=== PATIENT | male | born 1965 | race Caucasian/White ===

== ENCOUNTER 2020-04-24 09:57 | Emergency (ER) | payer BC ==
[2020-04-24] MEDS ORDERED: fentaNYL 100 MCG/2 ML SDV IVPUSH ONE ×2 (10:09→10:10)
[2020-04-24] MEDS ORDERED: Ondansetron 4 MG/2 ML SDV IVPUSH ONE (10:09)
--- NOTE | 2020-04-24 10:17 | EDM.PDOC ---
ED HPI GENERAL MEDICAL PROBLEM - General Chief Complaint: Laceration Stated Complaint: RIGHT FINGER LAC Time Seen by Provider: 04/24/20 10:10 - History of Present Illness INITIAL COMMENTS - FREE TEXT/NARRATIVE: 54-year-old male presents the emergency room after injuring his right hand. 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 He inadvertently got his right pinky finger caught in a V belt. He has done significant damage to this finger. His last tetanus is unknown. His last meal was approximately 8:00 Mountain time this morning. Right Finger-Little Pain Score (Numeric/FACES): 8 - Related Data Allergies Allergy/AdvReac Type Severity Reaction Status Date / Time No Known Allergies Allergy Verified 04/24/20 10:11 ED ROS GENERAL - Review of Systems Review Of Systems: See Below Constitutional: Reports: No Symptoms HEENT: Reports: No Symptoms Respiratory: Reports: No Symptoms Cardiovascular: Reports: No Symptoms GI/Abdominal: Reports: No Symptoms Neurological: Reports: No Symptoms ED EXAM, SKIN/RASH Exam: See Below Exam Limited By: No Limitations General Appearance: Alert, No Apparent Distress Head: Atraumatic Neck: Normal Inspection, Supple, Non-Tender, Full Range of Motion Respiratory/Chest: No Respiratory Distress, Lungs Clear, Normal Breath Sounds Cardiovascular: Regular Rate, Rhythm, No Edema, No Murmur Extremities: Other (Patient was right hand shows normal hand except for the fifth digit he has a 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 The patient can do nothing with this finger and the finger is pretty numb. The remaining distal finger is melendrez and dusky) Course - Vital Signs Last Recorded V/S: Last Vital Signs Temp 36.8 C 04/24/20 10:06 Pulse 53 L 04/24/20 10:06 Resp 20 04/24/20 10:06 BP 139/96 H 04/24/20 10:06 Pulse Ox 99 04/24/20 10:06 - Orders/Labs/Meds Orders: Active Orders 24 hr Category Date Time Status Vaccines to be Administered [RC] PER UNIT ROUTINE Care 04/24/20 10:20 Active Meds: Medications Discontinued Medications Generic Name Dose Route Start Last Admin Trade Name Freq PRN Reason Stop Dose Admin Diphtheria/Tetanus/Acell Pertussis 0.5 ml 04/24/20 10:20 Adacel IM 04/24/20 10:21 .ONCE ONE Fentanyl 50 mcg 04/24/20 10:09 04/24/20 10:17 Sublimaze IVPUSH 04/24/20 10:10 50 mcg ONETIME ONE Administration Fentanyl 50 mcg 04/24/20 10:10 Sublimaze IVPUSH 04/24/20 10:11 ONETIME ONE Cefazolin Sodium/Dextrose 2 gm 50 mls @ 100 mls/hr 04/24/20 10:18 04/24/20 10:45 / Premix IV 04/24/20 10:47 100 mls/hr ONETIME ONE Administration Ondansetron HCl 4 mg 04/24/20 10:09 04/24/20 10:15 Zofran IVPUSH 04/24/20 10:10 4 mg ONETIME ONE Administration - Re-Assessments/Exams Free Text/Narrative Re-Assessment/Exam: 04/24/20 11:38 X-ray reveals a disarticulation as was suspected on physical exam at the proximal interphalangeal joint of the fifth finger of the right hand. No obvious tuft fracture at the distal fourth finger as this was also injured. Case discussed with Dr. Ramirez, hand surgeon at [facility] in [place] who will see the patient today in the clinic and will determine the best disposition at that point. The patient is received 2 g of IV Ancef here and had his tetanus brought up-to-date. Departure - Departure Time of Disposition: 11:40 Disposition: DC/Tfer to Acute Hospital 02 Clinical Impression: Injury of right hand, Crushing injury of finger of right hand, Amputation of right little finger - Discharge Information Referrals: PCP,None [Primary Care Provider] - Forms: ED Department Discharge Additional Instructions: Have your ride take you directly to [facility] in [place]. You will see Dr. Ramirez. Do not have anything to eat or drink in route. Have your local tanker truck driver drive safely to [place]. Sepsis Event Note (ED) - Focused Exam Vital Signs: Vital Signs Temp Pulse Resp BP Pulse Ox 04/24/20 10:06 36.8 C 53 L 20 139/96 H 99 - My Orders Last 24 Hours: My Active Orders 04/24/20 10:20 Vaccines to be Administered [RC] PER UNIT ROUTINE - Assessment/Plan Last 24 Hours: My Active Orders 04/24/20 10:20 Vaccines to be Administered [RC] PER UNIT ROUTINE
[2020-04-24] MEDS ORDERED: ceFAZolin 2 GM in Premix Bag 1 BAG IV ONE (10:18)
[2020-04-24] MEDS ORDERED: Diphtheria,Pertussis(Acell),Tetanus Vaccine 0.5 ML Syringe IM ONE (10:20)
--- NOTE | 2020-04-24 10:57 | CR ---
Right hand: 3 views the right hand were obtained. Soft tissue injury and deformity is noted of the fifth finger at the PIP joint level. Other fingers appear normally aligned. No other acute abnormality is seen. Impression: 1. Soft tissue injury and deformity of the fifth finger at the PIP joint level. 2. No additional abnormality is appreciated. Diagnostic code #3 This report was dictated in MDT
== END 2020-04-24 11:50 ==
LOC: JD.ED 09:57
DX: S67.196A Crushing injury of right little finger, initial encounter (principal); S68.626A Partial traumatic transphalangeal amputation of right little finger, initial encounter; Z23 Encounter for immunization; W23.0XXA Caught, crushed, jammed, or pinched between moving objects, initial encounter
CPT/HCPCS: 73130; 90471; 90715; 96365; 96375; 96376; 99285; J0690; J2405; J3010; 99283